=== PATIENT | female | born 2005 | race Asian ===

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

== ENCOUNTER 2025-08-27 19:44 | Emergency (ER) | payer MEDICAID, OTHER ==
[~2025-08-27] VITALS: Ht 160 cm; Wt 88.2 kg
[2025-08-27 19:52] VITALS: TEMP 97.7
[2025-08-27 20:29] VITALS: BP 124/61; PULSE 82; RESP 14; O2SAT 100
[2025-08-27 20:47] LABS: PLATELET COUNT (AUTO) 274 K/uL (150-450); RED BLOOD CELL COUNT(AUTO) 5.13 MIL/uL (4.00-5.20); RED CELL DISTRIBUTION WIDTH 13.0 % (11.5-14.5); WHITE BLOOD COUNT (AUTO) 10.2 K/uL (4.5-11.0)
[2025-08-27 20:50] LABS: CALCIUM, TOTAL 9.3 mg/dL (8.8-10.5); CREATININE 0.49 mg/dL (0.60-1.30); GLOMERULAR FILTR. RATE CALC > 60 mL/min (>60); GLUCOSE,RANDOM 84 mg/dL (70-110); SODIUM SERUM 138 mmol/L (136-145); UREA NITROGEN, BLOOD 9 mg/dL (7-18)
[2025-08-27 21:00] LABS: TROPONIN I-HIGH SENSITIVITY Less Than 4 ng/L (<51)
== END 2025-08-28 | disposition left against medical advice (07) ==
LOC: EMS 20:26
DX: S16.1XXA Strain of muscle, fascia and tendon at neck level, initial encounter (principal); R20.0 Anesthesia of skin; F12.90 Cannabis use, unspecified, uncomplicated; X58.XXXA Exposure to other specified factors, initial encounter; Y93.89 Activity, other specified; Y92.89 Other specified places as the place of occurrence of the external cause; Y99.8 Other external cause status
CPT/HCPCS: 80048; 84484; 84703; 85025; 93005; 99284